=== PATIENT | female | born 1990 | race American Indian/Alaskan Native ===

== ENCOUNTER 2017-01-15 10:15 | Emergency (ER) | payer OTHER ==
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
[2017-01-15] MEDS ORDERED: FLEXERIL PO ONE (12:22)
[2017-01-15] MEDS ORDERED: NORCO 5/325 PO ONE (12:22)
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
[2017-01-15 14:22] VITALS: BP 142/80
== END 2017-01-15 14:57 | disposition home or self-care (01) ==
LOC: ED 10:15
DX: G44.309 Post-traumatic headache, unspecified, not intractable (principal); M25.561 Pain in right knee; R07.89 Other chest pain; V89.2XXA Person injured in unspecified motor-vehicle accident, traffic, initial encounter; Y93.89 Activity, other specified; Y99.8 Other external cause status; Y92.89 Other specified places as the place of occurrence of the external cause
CPT/HCPCS: 71020; 99283

== ENCOUNTER 2022-02-07 10:17 | Emergency (ER) | payer MEDICAID ==
[2022-02-07 10:34] VITALS: BP 138/84
== END 2022-02-07 14:41 | disposition left against medical advice (07) ==
LOC: ED 10:17
DX: Z53.21 Procedure and treatment not carried out due to patient leaving prior to being seen by health care provider (principal)